=== PATIENT | female | born 1965 | race Caucasian/White ===

== ENCOUNTER 2017-04-22 16:43 | Emergency (ER) | payer BC ==
[2017-04-22 17:05] VITALS: BP 131/86
--- NOTE | 2017-04-22 17:13 | UC ---
Ear Complaint HPI - HPI Summary HPI Summary: ciomplaint of right ear pain that started approx yesterday has been having some clear draiage from ear intermittently for the last 2 weeks feels like sound is muffled in right ear taking ibuprofen for pain with some relief denies fever, nasal congestion ,cough , headache - History of Current Complaint Chief Complaint: UCEar Stated Complaint: EAR COMPLAINT Time Seen by Provider: 04/22/17 17:00 Hx Obtained From: Patient Hx Last Menstrual Period: 2014 - Allergies/Home Medications Allergies/Adverse Reactions: Allergies Allergy/AdvReac Type Severity Reaction Status Date / Time Tetracycline Allergy Intermediate Rash Verified 04/22/17 16:57 PMH/Surg Hx/FS Hx/Imm Hx Previously Healthy: Yes Psychological History: Anxiety, Depression - Surgical History Surgical History: Yes Surgery Procedure, Year, and Place: 1 , L knee surgery. Endometrial biopsy, D&C, endometrial ablation - Family History Known Family History: Positive: Hypertension Negative: Cardiac Disease, Diabetes - Social History Occupation: Employed Full-time Lives: With Family Alcohol Use: None Substance Use Type: None Smoking Status (MU): Former Smoker Type: Cigarettes Have You Smoked in the Last Year: No When Did the Patient Quit Smoking/Using Tobacco: quit 2010 Household Exposure Type: Cigarettes - Immunization History Most Recent Influenza Vaccination: 2016 Most Recent Tetanus Shot: Unknown Review of Systems Constitutional: Negative Skin: Negative Eyes: Negative ENT: Ear Ache Respiratory: Negative Cardiovascular: Negative Gastrointestinal: Negative Genitourinary: Negative Motor: Negative Neurovascular: Negative Musculoskeletal: Negative Neurological: Negative Psychological: Negative All Other Systems Reviewed And Are Negative: Yes Physical Exam Triage Information Reviewed: Yes Appearance: No Pain Distress, Well-Nourished Vital Signs: Initial Vital Signs Temp 97.4 F 04/22/17 16:59 Pulse 82 04/22/17 16:59 Resp 18 04/22/17 16:59 BP 131/86 04/22/17 16:59 Pulse Ox 96 04/22/17 16:59 Vital Signs Reviewed: Yes Eyes: Positive: Conjunctiva Clear ENT: Positive: Pharynx normal, TMs normal, Other: - right ear canal with edema and erythema Neck: Positive: No Lymphadenopathy Respiratory: Positive: Lungs clear, Normal breath sounds, No respiratory distress, No accessory muscle use Cardiovascular: Positive: RRR, No Murmur, Pulses Normal Abdomen Description: Positive: Nontender, Soft Bowel Sounds: Positive: Present Musculoskeletal Exam: Normal Neurological Exam: Normal Psychological Exam: Normal Skin Exam: Normal Ear Complaint Course/Dx - Differential Dx/Diagnosis Differential Diagnosis/HQI/PQRI: Cerumen Impaction, Otitis Externa, Otitis Media Provider Diagnoses: right otitis externa Discharge - Discharge Plan Condition: Stable Disposition: HOME Prescriptions: Ciproflox/Dexameth OTIC.SUSP* [Ciprodex OTIC.SUSP*] 4 drop RIGHT EAR BID #1 btl Patient Education Materials: Otitis Externa (ED) Referrals: [facility] [Outside] Additional Instructions: Please start antibiotic as directed Increase fluids and rest Take acetaminophen or ibuprofen for fever or pain Please review your discharge instructions. If your symptoms do not improve please call your primary care provider or return to urgent care.
== END 2017-04-22 17:27 | disposition home or self-care (01) ==
LOC: UCCORT 16:43
DX: H60.91 Unspecified otitis externa, right ear (principal); F41.9 Anxiety disorder, unspecified; Z87.891 Personal history of nicotine dependence
CPT/HCPCS: 99212; G0463

== ENCOUNTER 2017-06-15 08:15 | Emergency (ER) | payer BC ==
[2017-06-15 08:30] VITALS: BP 127/81
--- NOTE | 2017-06-15 08:43 | UC ---
Respiratory Complaint HPI - HPI Summary HPI Summary: cough x 7 days + chest congestion , productive cough , + nasal congestion, pnd, fever, chills, no wheezing, no sob - History of Current Complaint Chief Complaint: UCRespiratory Stated Complaint: CHEST CONGESTION Time Seen by Provider: 06/15/17 08:28 Hx Obtained From: Patient Hx Last Menstrual Period: 2yrs ?: No Onset/Duration: Gradual Onset, Lasting Weeks - 1, Still Present Timing: Constant Severity Initially: Moderate Severity Currently: Moderate Character: Cough: Productive - yellow Aggravating Factors: Exertion, Deep Breaths Alleviating Factors: Nothing Associated Signs And Symptoms: Positive: Fever, Chills, URI, Nasal Congestion. Negative: Dyspnea, Wheezing, Hemoptysis, Dizziness, Calf Pain, Calf Swelling, Hoarseness, Sinus Discomfort - Allergies/Home Medications Allergies/Adverse Reactions: Allergies Allergy/AdvReac Type Severity Reaction Status Date / Time Tetracycline Allergy Intermediate Rash Verified 06/15/17 08:30 cardboard Allergy See Comment Uncoded 06/15/17 08:31 PMH/Surg Hx/FS Hx/Imm Hx Psychological History: Anxiety - Surgical History Surgical History: Yes Surgery Procedure, Year, and Place: 1 , L knee surgery x2 ; left hand growth. Endometrial biopsy, D&C, endometrial ablation - Family History Known Family History: Positive: Hypertension Negative: Cardiac Disease, Diabetes - Social History Alcohol Use: None Substance Use Type: None Smoking Status (MU): Former Smoker Type: Cigarettes Have You Smoked in the Last Year: No When Did the Patient Quit Smoking/Using Tobacco: quit 2010 Household Exposure Type: Cigarettes - Immunization History Most Recent Influenza Vaccination: 2016 Most Recent Tetanus Shot: Unknown Review of Systems Constitutional: Fever, Chills, Fatigue Skin: Negative Eyes: Negative ENT: Nasal Discharge Respiratory: Cough Cardiovascular: Negative Gastrointestinal: Negative Is Patient Immunocompromised?: No All Other Systems Reviewed And Are Negative: Yes Physical Exam Triage Information Reviewed: Yes Appearance: Well-Appearing, No Pain Distress, Obese Vital Signs: Initial Vital Signs Temp 97.4 F 06/15/17 08:25 Pulse 76 06/15/17 08:25 Resp 20 06/15/17 08:25 BP 127/81 06/15/17 08:25 Pulse Ox 97 06/15/17 08:25 Vital Signs Reviewed: Yes Eyes: Positive: Conjunctiva Clear ENT: Positive: Normal ENT inspection, Pharynx normal, Nasal congestion, Nasal drainage Neck exam: Normal Neck: Positive: Supple, Nontender, No Lymphadenopathy Respiratory: Positive: Chest non-tender, Lungs clear, Normal breath sounds, No respiratory distress Cardiovascular: Positive: RRR, No Murmur, Pulses Normal Abdominal Exam: Normal UC Diagnostic Evaluation - Laboratory O2 Sat by Pulse Oximetry: 97 Respiratory Course/Dx - Differential Dx/Diagnosis Provider Diagnoses: viral bronchitis Discharge - Discharge Plan Condition: Stable Disposition: HOME Patient Education Materials: Acute Bronchitis (ED) Referrals: GENNARO Packer [Primary Care Provider] - If Needed Additional Instructions: viral Bronchitis no need for Antibiotics follow up as needed
== END 2017-06-15 08:50 | disposition home or self-care (01) ==
LOC: UCCORT 08:15
DX: J20.8 Acute bronchitis due to other specified organisms (principal); Z88.1 Allergy status to other antibiotic agents; Z88.8 Allergy status to other drugs, medicaments and biological substances; Z77.22 Contact with and (suspected) exposure to environmental tobacco smoke (acute) (chronic)
CPT/HCPCS: 99211; G0463

== ENCOUNTER 2017-09-27 16:15 | Emergency (ER) | payer BC ==
[2017-09-27 17:31] VITALS: BP 134/91
--- NOTE | 2017-09-27 18:24 | UC ---
Respiratory Complaint HPI - HPI Summary HPI Summary: 52 y/o female presents to the urgent care c/o productive cough, chest congestion for the past 4 weeks. Pt reports symptoms were resolving.However the last 3 days pt has develop fever, AMAYA, more nasal congeestion with yellowish discharge, SOB. mild wheezing at times. She has taken OTC cough meds to alleviate symptoms. Pt denies chest pain, abdominal pain, N/V/D, urinary symptoms, back pain. - History of Current Complaint Chief Complaint: UCRespiratory Stated Complaint: COUGH/CONGESTION Time Seen by Provider: 09/27/17 18:23 Hx Obtained From: Patient Hx Last Menstrual Period: 2yrs ?: No Onset/Duration: Gradual Onset, Lasting Weeks - 4 weeks, Still Present, Worse Since - 5 days Timing: Intermittent Episodes Severity Initially: Moderate Severity Currently: Moderate Pain Intensity: 5 Pain Scale Used: 0-10 Numeric Character: Cough: Productive, Sputum Description: - yellowish Aggravating Factors: Recumbent Position Alleviating Factors: OTC Meds Associated Signs And Symptoms: Positive: Fever, URI, Nasal Congestion, Sinus Discomfort - Risk Factors Pulmonary Embolism Risk Factors: Negative Cardiac Risk Factors: Negative Pseudomonas Risk Factors: Negative Tuberculosis Risk Factors: Negative - Allergies/Home Medications Allergies/Adverse Reactions: Allergies Allergy/AdvReac Type Severity Reaction Status Date / Time Tetracycline Allergy Intermediate Rash Verified 09/27/17 17:26 Colored File Folder Allergy Hives Uncoded 09/27/17 17:26 Home Medications: Home Medications Phenylephrine-Chlorpheniramine [Sarai-[place] Plus Cold & 5-2-10-325 mg] 2 cap PO Q4H PRN 09/27/17 [History Confirmed 09/27/17] PMH/Surg Hx/FS Hx/Imm Hx Previously Healthy: Yes Psychological History: Anxiety Other Psychological History: Panic attacks - Surgical History Surgical History: Yes Surgery Procedure, Year, and Place: 1 , L knee surgery x2 ; left hand growth. Endometrial biopsy, D&C, endometrial ablation - Family History Known Family History: Positive: Hypertension, Diabetes Negative: Cardiac Disease - Social History Occupation: Employed Full-time Lives: With Family Alcohol Use: None Substance Use Type: None Smoking Status (MU): Former Smoker Type: Cigarettes Length of Time of Smoking/Using Tobacco: 1 PPD for 26 Years Have You Smoked in the Last Year: No When Did the Patient Quit Smoking/Using Tobacco: 2010 Household Exposure Type: Cigarettes - Immunization History Most Recent Influenza Vaccination: June 2017 Most Recent Tetanus Shot: Unknown Review of Systems Constitutional: Fever, Fatigue Skin: Negative Eyes: Negative ENT: Sore Throat, Nasal Discharge, Sinus Congestion Respiratory: Shortness Of Breath, Cough, Other - mild wheezing Cardiovascular: Negative Gastrointestinal: Negative Genitourinary: Negative Motor: Negative Neurovascular: Negative Musculoskeletal: Negative Neurological: Headache Psychological: Negative Is Patient Immunocompromised?: No All Other Systems Reviewed And Are Negative: Yes Physical Exam Triage Information Reviewed: Yes Vital Signs: Initial Vital Signs Temp 98.6 F 09/27/17 17:24 Pulse 76 09/27/17 17:24 Resp 18 09/27/17 17:24 BP 134/91 09/27/17 17:24 Pulse Ox 99 09/27/17 17:24 - Additional Comments Vital Signs Reviewed: Yes General: well developed, well nourished female sitting in the examining table w/ o any apparent distress Eyes: Positive: Conjunctiva Clear - PERRLA, EOMI, fundi grossly normal ENT: Positive: Normal ENT inspection, Hearing grossly normal, Pharynx normal, Nasal congestion - edematous and erythematous nasal mucosa, Nasal drainage - yellowish drainage, TMs normal. Negative: Tonsillar swelling, Tonsillar exudate Neck: Positive: Supple, Nontender, No Lymphadenopathy Respiratory: no orthopnea or dyspnea. Able to speak in full sentences, no retractions or accessory muscle use, no tripod position, stridor, or head bobbing. breath sound presents. RT posterior lung with mild decresase breath sound and crackles, no mild wheezing , rhonchi, or rales. Cardiovascular: Positive: RRR, No Murmur, Pulses Normal, Brisk Capillary Refill Abdomen Description: Positive: Nontender, No Organomegaly, Soft. Negative: CVA Tenderness (R), CVA Tenderness (L) Bowel Sounds: Positive: Present Musculoskeletal Exam: Normal Musculoskeletal: Positive: Strength Intact, ROM Intact, No Edema Neurological Exam: Normal Psychological Exam: Normal Skin Exam: Normal UC Diagnostic Evaluation - Laboratory O2 Sat by Pulse Oximetry: 99 Respiratory Course/Dx - Course Course Of Treatment: 52 y/o female presents to the urgent care c/o productive cough, chest congestion for the past 4 weeks. Pt reports symptoms were resolving.However the last 3 days pt has develop fever, AMAYA, more nasal congeestion with yellowish discharge, SOB. mild wheezing at times. She has taken OTC cough meds to alleviate symptoms. Pt denies chest pain, abdominal pain , N/V/D, urinary symptoms, back pain. Hx obtained. Pt with RT posterior lung with mild decrease breath sound and crackles on examination. O2sat: 99%. Chest X -ray ordered to r/o pneumonia. Impression: Questionable density obscuring the inferior most aspect of the Rt heart which could represent pneumonia on the clinical setting. Rapid Influenza A&B ordered: Influenza B positive.Pt's symptoms discussed with Dr cobb and he recommended to Rx ABX and Tamiflu. All the findings and test results discussed with the patient. Pt Rx Z-jefferson, Tamiflu PO, Tessalon tabs, and albuterol inhaler to alleviate severe cough. Pt was instructed to go to the emergency room immediately if any of the symptoms worsens. Plan of care was discussed with the patient. Pt's BP is elevated today advised to decrease salt in diet, monitor BP and f/u with PCP for further management.Pt understood and agreed. All questions were answered at patient satisfaction. There were no further complaints or concerns. Pt left the clinic hemodynamically stable, A&OX3 - Differential Dx/Diagnosis Differential Diagnosis/HQI/PQRI: Asthma, Bronchitis, Influenza, Laryngitis, Lower Resp Infection, Sinusitis, Other - pneumonia Provider Diagnoses: 1- Influenza B. 2-Pneumonia. 3- Elevated BP w/o Hx of HTN - Physician Notification/Consults Discussed Patient Care With: Destin Cobb - Dr Cobb agreed with Pt's plan of care Discharge - Discharge Plan Condition: Stable Disposition: HOME Prescriptions: Albuterol HFA INHALER* [Ventolin HFA Inhaler*] 1 - 2 puff INH Q4H PRN #1 mdi PRN Reason: Cough Azithromyxin JEFFERSON (NF) [Z-Jefferson (Zithromax) 250 mg tabs #6] 2 tab PO .TODAY, THEN 1 DAILY #6 tab Benzonatate CAP* [Tessalon 100 MG CAP*] 100 mg PO TID PRN #21 cap PRN Reason: Cough Oseltamivir CAP* [Tamiflu CAP*] 75 mg PO BID #10 cap Patient Education Materials: Influenza (ED), Community Acquired Pneumonia (ED) Forms: *Work Release Referrals: GENNARO Packer [Primary Care Provider] - 3 Days Additional Instructions: 1-Please take full course of antibiotic to avoid resistance. Also take the antiviral PO for the Influenza. Encourage hand washing and use a mask to avoid spreading 2-Take tessalon tabs PO as directed and use the albuterol inhaler to alleviate cough. Increase fluid intake, rest and eat well. 3- If symptoms do not improve or worsen or your develop SOB with fever and severe cough please go immediately to the ER further evaluation and treatment. 4-See your PCP in 2-3 days to check your symptoms are improving. 5- Your BP is elevated today. please decrease salt in your diet, monitor BP and if it continues to be elevated please f/u with your PCP for further management
--- NOTE | 2017-09-27 19:11 | RAD ---
INDICATION: Cough and congestion COMPARISON: Most recent comparison chest x-rays dated August 24, 2013 TECHNIQUE: PA and lateral views of the chest were obtained. FINDINGS: The heart and mediastinum are normal in size and contour. There is density at the medial right lower lung partially obscuring the right heart border. Elsewhere the lungs are clear. There is no evidence of large pleural effusion. Visualized bones are normal for the patient's age. There is no radiographic evidence of free air beneath the diaphragm IMPRESSION: QUESTIONABLE DENSITY OBSCURING THE INFERIOR MOST ASPECT OF THE RIGHT HEART WHICH COULD REPRESENT PNEUMONIA IN THE CORRECT CLINICAL SETTING.
== END 2017-09-27 19:53 | disposition home or self-care (01) ==
LOC: UCCORT 16:15
DX: J10.1 Influenza due to other identified influenza virus with other respiratory manifestations (principal); J18.9 Pneumonia, unspecified organism; Z87.891 Personal history of nicotine dependence
CPT/HCPCS: 71046; 87502; 99212; G0463

== ENCOUNTER 2019-05-17 20:48 | Emergency (ER) | payer BC ==
[2019-05-17] MEDS ORDERED: Ondansetron ODT TAB* 4 MG PO ONE ×2 (21:14→22:01)
--- NOTE | 2019-05-17 21:14 | UC ---
General HPI - HPI Summary HPI Summary: Wednesday, pt noted "my stomach felt off". Wednesday she developed a headache and some ear pressure. Today, pt is feeling lightheaded. She has had nausea with vomiting x3 plus additional dry heaves. She has also had 2 loose BM's and then watery diarrhea. she has had subjective fever and chills. She denies abdominal pain, sick contacts, travel hx and raw seafood consumption. - History of Current Complaint Chief Complaint: UCGI Stated Complaint: LIGHT HEADED/VOMITING/DIARRHEA Time Seen by Provider: 05/17/19 21:06 Hx Obtained From: Patient Hx Last Menstrual Period: 2yrs Onset/Duration: Gradual Onset Timing: Constant Pain Intensity: 0 Associated Signs & Symptoms: Positive: Weakness. Negative: Hematemesis, Melena - Allergy/Home Medications Allergies/Adverse Reactions: Allergies Allergy/AdvReac Type Severity Reaction Status Date / Time Tetracyclines Allergy Rash Verified 05/17/19 20:57 Home Medications: Home Medications Escitalopram * [Lexapro 10 mg (NF)] 10 mg PO DAILY 05/17/19 [History Confirmed 05/17/19] PMH/Surg Hx/FS Hx/Imm Hx Psychological History: Depression - Surgical History Surgical History: Yes Surgery Procedure, Year, and Place: 1 , L knee surgery x2 ; left hand growth. Endometrial biopsy, D&C, endometrial ablation - Family History Known Family History: Positive: Hypertension, Diabetes Negative: Cardiac Disease - Social History Alcohol Use: None Substance Use Type: None Smoking Status (MU): Former Smoker Type: Cigarettes Length of Time of Smoking/Using Tobacco: 1 PPD for 26 Years Have You Smoked in the Last Year: No When Did the Patient Quit Smoking/Using Tobacco: 2010 Household Exposure Type: Cigarettes - Immunization History Most Recent Influenza Vaccination: June 2017 Most Recent Tetanus Shot: Unknown Review of Systems All Other Systems Reviewed And Are Negative: No Constitutional: Positive: Fever, Chills Eyes: Negative: Eye Redness, Photophobia ENT: Positive: Ear Ache. Negative: Sore Throat, Sinus Congestion Respiratory: Negative: Shortness Of Breath, Cough Cardiovascular: Negative: Palpitations, Chest Pain Gastrointestinal: Positive: Vomiting, Diarrhea, Nausea. Negative: Abdominal Pain Genitourinary: Negative: Dysuria Motor: Positive: Weakness Musculoskeletal: Negative: Myalgia Neurological: Negative: Headache Physical Exam Triage Information Reviewed: Yes Appearance: Ill-Appearing - but non toxic. dry heaving x 2 during exam. Vital Signs: Initial Vital Signs Temp 97.7 F 05/17/19 20:52 Pulse 76 05/17/19 20:52 Resp 18 05/17/19 20:52 BP 141/86 05/17/19 20:52 Pulse Ox 97 05/17/19 20:52 Vital Signs Reviewed: Yes Eyes: Positive: Conjunctiva Clear ENT: Positive: Pharynx normal, TMs normal. Negative: Nasal congestion, Nasal drainage Neck: Positive: Supple, Nontender, No Lymphadenopathy. Negative: Nuchal Rigidity Respiratory: Positive: Lungs clear, Normal breath sounds, No respiratory distress Cardiovascular: Positive: RRR, No Murmur Abdomen Description: Positive: Nontender, No Organomegaly, Soft Bowel Sounds: Positive: Present Musculoskeletal: Positive: ROM Intact Neurological: Positive: Alert Psychological: Positive: Age Appropriate Behavior Skin Exam: Normal Diagnostics - Laboratory Lab Results: FS [id number] Re-Evaluation - Re-Evaluation First Eval Re-Evaluation Time: 21:47 Change: Improved - nausea and dry heaves have resolved. still some lightheaded. taking sips of gingerale. Second Eval Re-Evaluation Time: 22:03 Change: Improved - no n/v. no lightheaded. taking po fluids. Course/Dx - Diagnoses Provider Diagnosis: Vomiting, Diarrhea Discharge ED - Sign-Out/Discharge Documenting (check all that apply): Patient Departure All imaging exams completed and their final reports reviewed: No Studies - Discharge Plan Condition: Stable Disposition: HOME Patient Education Materials: Acute Nausea and Vomiting (ED), Acute Diarrhea (ED ) Forms: *Work Release Referrals: GENNARO Packer [Medical Doctor] - Additional Instructions: FOLLOW UP IF NOT BETTER IN A FEW DAYS. GO TO THE ER FOR ANY WORSENING. - Billing Disposition and Condition Condition: STABLE Disposition: Home - Attestation Statements Provider Attestation: This patient was not seen by me. I was available for consult. MILA
[2019-05-17] MEDS ORDERED: NS 0.9% 1000 ML** 1,000 ML IV ONE (21:15)
[2019-05-17 22:02] VITALS: BP 142/75
== END 2019-05-17 22:16 | disposition home or self-care (01) ==
LOC: UCCORT 20:48
DX: R11.10 Vomiting, unspecified (principal); R19.7 Diarrhea, unspecified; F32.9 Major depressive disorder, single episode, unspecified; Z87.891 Personal history of nicotine dependence
CPT/HCPCS: 96360; 99212; A9270-GY; G0463

== ENCOUNTER 2019-09-19 08:00 | Emergency (ER) | payer BC ==
[2019-09-19 08:31] VITALS: BP 149/87
--- NOTE | 2019-09-19 09:15 | UC ---
Abdominal Pain Female HPI - HPI Summary HPI Summary: nausea and vomiting x 1 day symptoms have been severe , 8 out of 10 cannot keep anything down, vomited x 4 this morning + abdominal cramps , no fever, + chills, no urinary sx - History of Current Complaint Chief Complaint: UCGeneralIllness Stated Complaint: NAUSEA EARS DIZZY Time Seen by Provider: 09/19/19 08:17 Hx Obtained From: Patient Hx Last Menstrual Period: 2yrs ?: No Onset/Duration: Gradual Onset, Lasting Days - 1, Still Present Severity Initially: Moderate Severity Currently: Severe Pain Intensity: 0 Pain Scale Used: 0-10 Numeric Location: Diffuse Radiates: No Character: Cramping Aggravating Factor(s): Food Alleviating Factor(s): NPO Associated Signs and Symptoms: Positive: Decreased Appetite, Nausea, Vomiting, Diarrhea. Negative: Fever, Cough, Chest Pain, Dizzy, Back Pain, Blood in Stool , Vaginal Bleeding Allergies/Adverse Reactions: Allergies Allergy/AdvReac Type Severity Reaction Status Date / Time Tetracyclines Allergy Rash Verified 09/19/19 08:24 Home Medications: Home Medications Diphenhydra/Phenyleph/Acetamin [Eq Severe Allergy & Sinus] 1 tab PO DAILY PRN [History Confirmed 09/19/19] PMH/Surg Hx/FS Hx/Imm Hx Psychological History: Anxiety - Surgical History Surgical History: Yes Surgery Procedure, Year, and Place: 1 , L knee surgery x2 ; left hand growth. Endometrial biopsy, D&C, endometrial ablation - Family History Known Family History: Positive: Hypertension, Diabetes Negative: Cardiac Disease - Social History Alcohol Use: None Substance Use Type: None Smoking Status (MU): Former Smoker Type: Cigarettes Length of Time of Smoking/Using Tobacco: 1 PPD for 26 Years Have You Smoked in the Last Year: No When Did the Patient Quit Smoking/Using Tobacco: 2010 Household Exposure Type: Cigarettes - Immunization History Most Recent Influenza Vaccination: June 2017 Most Recent Tetanus Shot: Unknown Review of Systems All Other Systems Reviewed And Are Negative: Yes Constitutional: Positive: Chills, Fatigue Skin: Positive: Negative Eyes: Positive: Negative ENT: Positive: Negative Respiratory: Positive: Negative Cardiovascular: Positive: Negative Gastrointestinal: Positive: Abdominal Pain, Vomiting, Diarrhea, Nausea Genitourinary: Positive: Negative Is Patient Immunocompromised?: No Physical Exam Triage Information Reviewed: Yes Appearance: Obese Vital Signs: Initial Vital Signs Temp 98.2 F 09/19/19 08:26 Pulse 83 09/19/19 08:26 Resp 15 09/19/19 08:26 BP 149/87 09/19/19 08:26 Pulse Ox 96 09/19/19 08:26 Vital Signs Reviewed: Yes Eye Exam: Normal Eyes: Positive: Conjunctiva Clear ENT: Positive: Normal ENT inspection, Hearing grossly normal, Pharynx normal, TMs normal Neck: Positive: Supple, Nontender, No Lymphadenopathy Respiratory: Positive: Chest non-tender, Lungs clear, Normal breath sounds Cardiovascular: Positive: RRR, No Murmur, Pulses Normal Abdomen Description: Positive: Nontender, Soft. Negative: CVA Tenderness (R), CVA Tenderness (L), Distended, Guarding Bowel Sounds: Positive: Present Abd Pain Female Course/Dx - Course Course Of Treatment: elevated BP: cont. to monitor your bp follow up with your pcp in one week - Differential Dx/Diagnosis Provider Diagnosis: Gastroenteritis, Elevated BP without diagnosis of hypertension Discharge ED - Sign-Out/Discharge Documenting (check all that apply): Patient Departure All imaging exams completed and their final reports reviewed: No Studies - Discharge Plan Condition: Stable Disposition: HOME Prescriptions: Ondansetron ODT TAB* [Zofran 4 MG Odt TAB*] 8 mg PO Q8H PRN #9 tab.odt PRN Reason: Nausea/Vomiting Patient Education Materials: Gastroenteritis (ED) Referrals: No Primary Care Phys,NOPCP [Primary Care Provider] - If Needed - Billing Disposition and Condition Condition: STABLE Disposition: Home
== END 2019-09-19 08:55 | disposition home or self-care (01) ==
LOC: UCCORT 08:00
DX: K52.9 Noninfective gastroenteritis and colitis, unspecified (principal); R53.83 Other fatigue; R03.0 Elevated blood-pressure reading, without diagnosis of hypertension; Z87.891 Personal history of nicotine dependence; Z88.1 Allergy status to other antibiotic agents
CPT/HCPCS: 99212; G0463